=== PATIENT | female | born 1965 | race Caucasian/White ===

== ENCOUNTER → 2016-11-14 | Outpatient (CLI) | payer BC ==
[~2016-11-14] MED LIST: ALBUAER19 INH; CLTP PO; FLNIN NAE; MONT1TAB3 PO; MULT-506 PO; OMEG10007 PO; OMEP40CA PO; SYMIN160 INH
--- NOTE | 2016-11-14 15:04 | DIAGNOSTIC IMAGING REPORT ---
LUMBAR SPINE 5 VIEWS HISTORY: Pain M54.31 Sciatica of right [id number] COMPARISON: None. FINDINGS: There is no fracture. Mild scoliosis. Disc spaces are well-preserved. Posterior elements are intact. IMPRESSION: Mild scoliosis. Otherwise negative study Electronically signed by: Ronnie Juarez M.D. 11/14/2016 3:02 PM Dictated Date/Time: 11/14/2016 3:01 PM
== END | disposition home or self-care (01) ==
LOC: C.LAB1850 14:47
PROVIDERS: ATTEND Physician Assistant
DX: M54.31 Sciatica, right side (principal); M41.9 Scoliosis, unspecified

== ENCOUNTER → 2017-02-10 | Outpatient (CLI) | payer BC ==
--- NOTE | 2017-02-10 10:56 | DIAGNOSTIC IMAGING REPORT ---
ABDOMEN LIMITED (US) HISTORY:52 [id number] Umbilical herniaSusptected umbilical hernia COMPARISON: None available. TECHNIQUE: Multiple real-time sonographic images of the periumbilical soft tissues were obtained assessing grayscale appearance and color flow. FINDINGS: Within the periumbilical tissues there is a focal area which is isocaloric to adjacent subcutaneous fat which measures 2.0 x 1.1 cm and demonstrates a thin hypoechoic rim. With compression, this area appears to move partially both anterior and posterior in relation to the umbilicus suggesting a fat filled umbilical hernia. No communication of bowel identified. IMPRESSION: Findings compatible with a partially reducible fat containing umbilical hernia. No associated bowel loops identified. The above report was generated using voice recognition software. It may contain grammatical, syntax or spelling errors. Electronically signed by: Jasper Stroud 02/10/2017 10:55 AM Dictated Date/Time: 02/10/2017 10:52 AM
== END | disposition home or self-care (01) ==
LOC: C.ULTRBC 09:22
PROVIDERS: ATTEND Physician Assistant
DX: K42.9 Umbilical hernia without obstruction or gangrene (principal)

== ENCOUNTER → 2017-06-22 | Outpatient (CLI) | payer BC ==
[2017-06-22 09:46] LABS: ALT/SGPT 25 U/L (12-78); AST/SGOT 17 U/L (15-37); BLOOD UREA NITROGEN 16 mg/dl (7-18); BUN/CREATININE RATIO 17.9 (10-20); CALCIUM 8.9 mg/dl (8.5-10.1); CARBON DIOXIDE 27 mmol/L (21-32); CHLORIDE 105 mmol/L (98-107); CHOLESTEROL 190 mg/dl (0-200); CREATININE 0.88 mg/dl (0.60-1.20); GLUCOSE 87 mg/dl (70-99); POTASSIUM 3.7 mmol/L (3.5-5.1); SODIUM 141 mmol/L (136-145); TRIGLYCERIDES 52 mg/dl (0-150); VERY LOW DENSITY LIPOPROT CALC 10 mg/dl
[2017-06-22 09:48] LABS: CHOLESTEROL/HDL RATIO 2.6; HDL CHOLESTEROL 74 mg/dl; LDL CHOLESTEROL CALCULATED 106 mg/dl
== END | disposition home or self-care (01) ==
LOC: C.LAB1850 07:23
PROVIDERS: ATTEND Internal Medicine
DX: K90.0 Celiac disease (principal)

== ENCOUNTER → 2017-08-07 | Outpatient (CLI) | payer BC ==
--- NOTE | 2017-08-10 07:35 | MAMMOGRAPHY REPORT ---
BILATERAL DIGITAL SCREENING MAMMOGRAM TOMOSYNTHESIS WITH CAD: 08/07/2017 CLINICAL HISTORY: Routine screening. Patient has no complaints. TECHNIQUE: Breast tomosynthesis in addition to standard 2D mammography was performed. Current study was also evaluated with a Computer Aided Detection (CAD) system. COMPARISON: Comparison is made to exams dated: 07/28/2016 mammogram, 04/17/2015 mammogram, 03/30/2014 mammogram, 03/28/2013 mammogram, 03/26/2012 mammogram, and 03/20/2011 mammogram - [facility]. BREAST COMPOSITION: The tissue of both breasts is extremely dense, which lowers the sensitivity of m ammography. FINDINGS: No suspicious masses, calcifications, or areas of architectural distortion are noted in ei ther breast. There has been no significant interval change compared to prior exams. Scattered bilater al benign-appearing calcifications are not significantly changed. IMPRESSION: ACR BI-RADS CATEGORY 2: BENIGN There is no mammographic evidence of malignancy. A 1 year screening mammogram is recommended. The pa tient will receive written notification of the results. Approximately 10% of breast cancers are not detected with mammography. A negative mammographic report should not delay biopsy if a clinically suggestive mass is present. Mylene Mcfarland M.D. ah/:08/07/2017 15:22:16 Band Sewer: Hailey ESCOBEDO)(), [facility] letter sent: Normal 1/2 BI-RADS Code: ACR BI-RADS Category 2: Benign
== END | disposition home or self-care (01) ==
LOC: C.MAMM 10:08
PROVIDERS: ATTEND Internal Medicine
DX: Z12.31 Encounter for screening mammogram for malignant neoplasm of breast (principal)